=== PATIENT | female | born 1960 | race Caucasian/White ===

== ENCOUNTER → 2017-03-25 | Outpatient (CLI) | payer MEDICARE | LOC: KOH-I 11:29 | DX: M54.2 Cervicalgia (principal); M50.30 Other cervical disc degeneration, unspecified cervical region; M47.892 Other spondylosis, cervical region; M99.71 Connective tissue and disc stenosis of intervertebral foramina of cervical region | CPT/HCPCS: 72141 ==

== ENCOUNTER → 2022-01-20 | Outpatient (CLI) | payer OTHER | LOC: KOH-I 13:34 | DX: R13.10 Dysphagia, unspecified (principal); R91.8 Other nonspecific abnormal finding of lung field | CPT/HCPCS: 76536 ==

== ENCOUNTER → 2022-05-24 | Outpatient (CLI) | payer OTHER ==
[~2022-05-24] VITALS: Ht 165.1 cm; Wt 80.3 kg
[~2022-05-24] MED LIST: CYCLOBENZAPRINE10 MG PO; FENOFIBRATE160 MG PO; FISH OIL 1,0001 EACH PO; LISINOPRIL20 MG PO; PROTONIX20 MG PO; ROBAXIN 750 MG750 MG PO; SERTRALINE HCL50 MG PO; TYLENOL EXTRA500 MG PO
[2022-05-24 10:55] LABS: HEMOGLOBIN 12.6 gm/dl (12.3-15.3); RED BLOOD COUNT 4.16 M/UL (4.00-5.10)
[2022-05-24 11:26] LABS: BUN/CREATININE RATIO 28 (0-10)
== END ==
LOC: EDSTATUS 10:00 → OPSV2 10:00
PROVIDERS: Orthopaedic Surgery
DX: Z01.818 Encounter for other preprocedural examination (principal); M16.12 Unilateral primary osteoarthritis, left hip
CPT/HCPCS: 36415; 71046; 80048; 85025; 93005

== ENCOUNTER → 2022-06-17 | Outpatient (CLI) | payer OTHER ==
[~2022-06-17] MED LIST changes: +ASPIR-TRIN325 MG PO; +HYDROCODON-ACE1 EAC6 PO
[2022-06-17 13:01] LABS: BUN/CREATININE RATIO 28 (0-10)
== END ==
LOC: LAB 12:17
PROVIDERS: Orthopaedic Surgery
DX: Z01.812 Encounter for preprocedural laboratory examination (principal)
CPT/HCPCS: 36415; 80048; 86850; 86900; 86901

== ENCOUNTER → 2022-06-18 | Day surgery (SDC) | payer OTHER ==
[~2022-06-18] VITALS: Ht 165.1 cm; Wt 80.3 kg
== END | disposition home or self-care (01) ==
LOC: OR 06-14 07:30
DX: M16.12 Unilateral primary osteoarthritis, left hip (principal); I10 Essential (primary) hypertension; E78.5 Hyperlipidemia, unspecified; K21.9 Gastro-esophageal reflux disease without esophagitis; F32.A Depression, unspecified; Z79.899 Other long term (current) drug therapy
CPT/HCPCS: 73502; 76000; 97116; 97162; 97165; C1776; J0690; J1100; J1170; J1885; J2001; J2250; J2274; J2370; J2405; J2704; J3010; J7050